=== PATIENT | female | born 1970 | race Hispanic/Latino ===

== ENCOUNTER 2019-05-18 16:25 | Inpatient (IN) | payer MEDICAID, SELFPAY ==
[2019-05-18] MEDS ORDERED: Heparin 1,000 UNITS/ML VIAL ONE (16:41)
[2019-05-18] MEDS ORDERED: Ondansetron PF 4 MG/2 ML Vial ONE ×2 (18:14→19:52)
[2019-05-18 18:21] LABS: Mean Corpuscular HGB CONC 33.6 g/dL (32.0-36.0); Mean Corpuscular Hemoglobin 27.4 pg (27.0-31.0); Mean Corpuscular Volume 81.6 fL (78.0-98.0); Mean Platelet Volume 9.3 fL (7.4-10.4); Platelet Count 278 thou/uL (130-400); RBC Distribution Width 13.1 % (11.5-14.5); White Blood Cell (WBC) Count 13.4 thou/uL (4.8-10.8)
[2019-05-18 18:30] LABS: ALT (SGPT) 47 U/L (8-55); AST (SGOT) 32 U/L (5-34); Alkaline Phosphatase 168 U/L (40-110); Anion Gap 13 mmol/L (10-20); BUN (Urea Nitrogen) 4 mg/dL (7.0-18.7); Bilirubin, Total 0.7 mg/dL (0.2-1.2); Calc. Creatinine Clearance 0 mL/min (70-130); Calcium 9.2 mg/dL (7.8-10.44); Carbon Dioxide 24 mmol/L (22-29); Chloride 102 mmol/L (98-107); Estimated GFR-MDRD 86; Globulin 3.9 g/dL (2.4-3.5); Glucose 126 mg/dL (70-105); Lipase 16 U/L (8-78); Potassium 3.4 mmol/L (3.5-5.1); Protein, Total 7.9 g/dL (6.0-8.3); Sodium 136 mmol/L (136-145)
[2019-05-18 18:37] LABS: Bilirubin Negative (Negative); Blood, Urine 2+ (Negative); Clarity Clear (Clear); Glucose, Urine (Dipstick) Normal (Negative); Leukocyte Negative Leu/uL (Negative); Nitrite Negative (Negative); Protein, Urine (Dipstick) Negative (Neg-Trace); Squamous Epithelial 0-3 HPF (0-3); Urobilinogen Normal mg/dL (Less than 2); WBC/HPF 0-3 HPF (0-3)
[2019-05-18 18:38] LABS: Bacteria/HPF 1+ HPF (None Seen); Pregnancy Test - Urine (BHCG) Negative (Negative); Pregu Control Background? CLEAR/WHITE (CLR/WHITE); Pregu Control Bar Appear? YES (CONTROL BAR); Specific Gravity 1.006 (1.002-1.036)
[2019-05-18 18:43] LABS: Band 5 % (5-11); Lymphocytes 10 % (21-51); MDiff Complete? YES; Monocytes 2 % (0-10); Neutrophil 83 % (42-75); Platelet Morphology Comment Appears Adequate; RBC Morphology Normal
--- NOTE | 2019-05-18 19:38 | CT ---
EXAM: CT ABDOMEN AND PELVIS HISTORY: 8 days of abdominal pain. COMPARISON: None. Procedure: Multiple contiguous axial images were obtained and a CT of the abdomen and pelvis with IV contrast. C oronal reformats were performed. FINDINGS: Lower Chest: within normal limits. Vessels: Normal caliber aorta. Heart: Upper normal cardiac silhouette. No significant pericardial fluid. Abdomen: Portal vein:Patent Gallbladder: No calcified gallstones. Normal caliber wall. Liver: within normal limits. Pancreas: within normal limits. Spleen: within normal limits. Adrenals: within normal limits. Kidneys: Symmetric enhancement. No obstructive uropathy. Peritoneum: There is stranding of the inferior midline abdominal mesentery. There is stranding of the mesentery adjacent to the sigmoid colon. Bowel: Limited evaluation due to lack of oral contrast. No evidence of small bowel obstruction. Unrem arkable ileocecal junction. Normal caliber appendix. There does appear to be mucosal thickening involving the sigmoid colon with pericolonic fat stranding. Mild mucosal thickening of the rectum is also noted. Mesentery and Retroperitoneum: There are enlarged periaortic and aortocaval lymph nodes. Respectively , these lymph nodes measure 0.8 x 1.3 cm and 1.4 x 0.8 cm. Abdominal Wall: Small ventral abdominal wall hernia containing mesenteric fat. Pelvis: Reproductive Organs: There is fluid in the endometrial canal and vaginal vault. There is heterogeneou s appearance of the right ovary with possible multiple small follicles. The left ovary is markedly enlarged with adjacent fat stranding. Multiple complex cystic lesions are suspected. Overall the left ovary measures 8.1 x 4.6 cm. Pelvis: There is a small amount of fluid in the pelvis. Bladder: within normal limits. Bones: within normal limits. IMPRESSION: 1. Complex multiloculated lesion of the left adnexa with adjacent fat stranding. The possibility of a ovarian cystic lesion is raised. Stranding may be secondary to a recently ruptured cyst. Other etiologies including infectious or neoplastic process cannot be excluded. 2. Abnormal appearance of the right ovary with multiple hypodensities which may represent small folli cles. 3. Mucosal thickening with pericolonic fat stranding involving the sigmoid colon and rectum. Findings may be due to colitis. Reactive changes from inflammation of the left adnexa cannot be excluded. 4. Retroperitoneal lymphadenopathy. Results of study discussed with Dr. Marley 05/18/2019 at 7:36 PM Code CR Transcribed Date/Time: 05/18/2019 8:07 PM
[2019-05-18] MEDS ORDERED: Morphine 4 MG/ML VIAL ONE (19:52)
[2019-05-18] MEDS ORDERED: Ketorolac Tromethamine 30 MG/ML VIAL ONE (20:10)
[2019-05-18] MEDS ORDERED: cefOXitin 2 GM VIAL ONE (20:32)
[2019-05-18] MEDS ORDERED: Doxycycline 100 MG CAP PO SCH (20:45)
[2019-05-18] MEDS ORDERED: Ketorolac Tromethamine 30 MG/ML VIAL IVP PRN (23:37)
[2019-05-18] MEDS ORDERED: traMADol HCl 50 MG TAB PO PRN (23:38)
[2019-05-19] MEDS ORDERED: cefOXitin 2 GM in Sodium Chloride 0.9% 100 ML IVPB SCH (02:00)
[2019-05-19] MEDS ORDERED: Acetaminophen 500 MG TAB ONE (06:39)
--- NOTE | 2019-05-19 11:40 | HP ---
CHIEF COMPLAINT: Abdominal pain. HISTORY OF PRESENT ILLNESS: The patient is a 48-year-old multiparous female, who has presented to the emergency room with 8 days of abdominal pain and on evaluation downstairs, was noted to have an adnexal mass with fat stranding of about 8 cm dilation and lymphadenopathy. GRADUATE STUDENT INSTRUCTOR was consulted and the patient was admitted for suspected tubo-ovarian abscess. The patient reports that she has been having this foul discharge now for about a week. She denies any history of sexually transmitted infections or recurrent pelvic infections. She is and is sexually active. The patient does report that she has on occasion been to the doctor there in [place] for this foul smelling vaginal discharge and has been given antibiotics and sent home. The patient most recently was sent home in the last couple of days with medication for gastritis and urinary tract infection. The patient reports she has had fever at home off and on for multiple days. Denies nausea, or vomiting. Reports headaches for the last 3 days. Denies chest pain or shortness of breath. Denies diarrhea, or constipation. Denies any new rashes, hip problems, knee problems, or muscle weakness. Reports this vaginal discharge and bleeding when she wipes, which she does not believe is menstrual bleeding or vaginal bleeding. The patient also reports some bleeding with urination. PAST MEDICAL HISTORY: Negative. PAST SURGICAL HISTORY: For prior . ALLERGIES: NO KNOWN DRUG ALLERGIES. MEDICATIONS: Her recently prescribed medications include; 1. Sucralfate 1 g. 2. Omeprazole 40 mg daily. SOCIAL HISTORY: Denies drug, alcohol, or tobacco use. PHYSICAL EXAMINATION: VITAL SIGNS: In the emergency room, the patient had a temperature of 102.6. Most recent vital signs on the floor, blood pressure is 119/70, temperature 98.3, pulse is 79, respiratory rate 18, saturating 99% on room air. GENERAL: She appears to be in no acute distress. She is alert and oriented, cooperative, and pleasant to interact with. HEENT: Head is normocephalic, atraumatic. LUNGS: Clear to auscultation bilaterally. HEART: Has regular rate and rhythm. ABDOMEN: Little protuberant. She does have pretty significant tenderness to palpation in her lower abdomen and left and right sides with the right seeming to be more tender than the left. EXTREMITIES: Nontender, nonedematous. : Deferred at this time. DIAGNOSTIC STUDIES: CT report shows this left adnexal mass of about 8 x 4 cm, multiloculated with fat stranding and mucosal thickening involving the sigmoid colon and rectum that may be reactive changes from the left adnexa. LABORATORY DATA: Her white count was 13.4, hemoglobin 11, hematocrit 32.6, neutrophil percentage 83. ASSESSMENT AND PLAN: The patient is a 48-year-old female with what appears to be a tubo-ovarian abscess, now treated with cefoxitin 2 g q.6 hours and doxycycline 100 mg p.o. b.i.d. We will continue treatment for the next several days and re-evaluate. Clinically pain should improve in the next couple of days as a sign of treatment responsiveness and depending on how quickly her fever resolves, we will continue IV antibiotics until she is 40 hours afebrile, and then continue transition to oral antibiotics for outpatient management. We may need to re-image over the next several days to evaluate for improvement and persistently enlarging adnexa. The patient has Toradol, tramadol, and Tylenol for pain control at this time, Ambien for sleep, and Protonix for GI prophylaxis. Job ID: [id number]
[2019-05-19] MEDS: cefOXitin Sodium/Dextrose,Iso 2 GM in Premix Bag 1 BAG IVPB SCH ×3 (13:14→19:54)
[2019-05-19] MEDS: Doxycycline 100 MG CAP PO SCH ×2 (13:15→23:00)
[2019-05-19] MEDS ORDERED: Sodium Chloride 0.9% 10 ML ONE (15:54)
[2019-05-19] MEDS: Acetaminophen 500 MG TAB PO PRN (17:12)
[2019-05-19] MEDS ORDERED: Ondansetron ODT 4 MG TAB SL PRN (19:18)
[2019-05-19] MEDS ORDERED: Ondansetron 2MG/ML MDV 4 MG in Sodium Chloride 0.9% 50 ML IVPB PRN (19:18)
--- NOTE | 2019-05-19 19:21 | PDOC.BPN ---
- Brief Progress Note S: Patient reports pain is improved from admission. Complaining of some nausea but otherwise no issues. O: Vital Signs - Most Recent Temp Pulse Resp BP Pulse Ox 100.2 F H 88 20 117/66 96 05/19/19 17:03 05/19/19 17:03 05/19/19 17:03 05/19/19 17:03 05/19/19 17:03 Gen - AAO, NAD Exam otherwise deferred A/P: Admitted for TOA, on antibiotics. Clinically improved. Temperatures trending down. Continue antibiotics. Will order Zofran for nausea.
[2019-05-19] MEDS ORDERED: FLU VACC QS2019-20(6MOS UP)/PF 60 MCG/0.5 ML SYRINGE IM ONE (21:00)
[2019-05-19 22:46] LABS: Chlamydia by PCR Not Detected (NotDetected); GC by PCR Not Detected (NotDetected)
[2019-05-20] MEDS: cefOXitin Sodium/Dextrose,Iso 2 GM in Premix Bag 1 BAG IVPB SCH ×4 (02:51→20:25)
[2019-05-20 04:34] LABS: #Eosinphils 0.4 thou/uL (0.0-0.7); #Lymphocytes 0.9 thou/uL (1.20-3.40); #Monocytes 0.6 thou/uL (0.11-0.59); #Neutrophils 8.9 thou/uL (1.40-6.50); %Basophils 0.3 % (0.0-1.0); %Eosinophils 3.3 % (0.0-10.0); %Lymphocytes 8.6 % (21.0-51.0); %Monocytes 5.1 % (0.0-10.0); %Neutrophils 82.8 % (42.0-75.0); Hemoglobin 9.1 g/dL (12.0-16.0); Mean Corpuscular HGB CONC 32.9 g/dL (32.0-36.0); Mean Corpuscular Hemoglobin 27.4 pg (27.0-31.0); Mean Corpuscular Volume 83.4 fL (78.0-98.0); Mean Platelet Volume 8.5 fL (7.4-10.4); Platelet Count 253 thou/uL (130-400); Red Blood Cell (RBC) Count 3.31 mill/uL (4.20-5.40); White Blood Cell (WBC) Count 10.7 thou/uL (4.8-10.8)
--- NOTE | 2019-05-20 07:33 | PDOC.BPN ---
- Brief Progress Note S: Patient with mild lower abdominal pain but doing better. Nausea improved. O: Tm 102 at 1700 Gen - AAO, NAD Abd - soft, mildly TTP, no guarding or rebound Labs: Laboratory Results - last 24 hr 05/18/19 05/20/19 21:38 04:22 WBC 10.7 RBC 3.31 L Hgb 9.1 L Hct 27.6 L MCV 83.4 MCH 27.4 MCHC 32.9 RDW 13.0 Plt Count 253 MPV 8.5 Neutrophils % 82.8 H Lymphocytes % 8.6 L Monocytes % 5.1 Eosinophils % 3.3 Basophils % 0.3 Neutrophils # 8.9 H Lymphocytes # 0.9 L Monocytes # 0.6 H Eosinophils # 0.4 Basophils # 0.0 Chlamydia DNA (PCR) Not Detected Chlamydia/GC Spec Info N gonorrhoeae DNA (PCR) Not Detected A/P: Clinically improving. One fever yesterday evening but none overnight; WBC count normal this am. Continue antibiotic therapy until afebrile at least 24 hours.
[2019-05-20] MEDS: Doxycycline 100 MG CAP PO SCH ×2 (09:04→22:41)
[2019-05-20] MEDS: Acetaminophen 500 MG TAB PO PRN (17:47)
[2019-05-21] MEDS: cefOXitin Sodium/Dextrose,Iso 2 GM in Premix Bag 1 BAG IVPB SCH ×2 (02:06→08:04)
[2019-05-21] MEDS: Doxycycline 100 MG CAP PO SCH ×2 (08:40→21:36)
--- NOTE | 2019-05-21 10:29 | CT ---
CT OF THE ABDOMEN AND PELVIS WITH IV CONTRAST INDICATION: Follow-up pelvic infection COMPARISON: CT the abdomen and pelvis dated May 18, 2019 FINDINGS: ABDOMEN: Lung bases: Bibasilar atelectasis. Liver: No focal lesion. Gallbladder: Normal appearing. Pancreas: Normal. Adrenal glands: Normal. Spleen: Normal. Kidneys and ureters: Normal. No hydronephrosis. Vasculature: Normal. Lymph nodes:There are mildly prominent shotty appearing lymph nodes seen within the left periaortic r egion which are relatively stable to the prior exam. Free fluid in abdomen:No free fluid is evident. PELVIS: Small and large bowel: Normal Appendix:There is mild fluid distention of the distal tip of the appendix with the tip of the appendi x measuring up to 11 mm. The tip is adjacent to a region of inflammatory change in the left adnexa. The mid to proximal aspect the appendix is normal in caliber and appearance. Bladder: Normal. Rectal and perirectal soft tissues:Normal. Reproductive structures: There is an 8.4 x 4.5 x 6.8 cm loculated peripherally enhancing fluid collec tion within the region of the left adnexa. This is roughly stable in size to the prior exam. There is surrounding inflammatory stranding within the parametrium as well as within the adjacent sigmoid c olon. Right ovary is normal-appearing. Free fluid in pelvis: Mild free fluid Lymphadenopathy pelvis: No lymphadenopathy is evident. Osseous structures: No acute osseous abnormality. No destructive osteolytic or osteoblastic lesion i s identified. Soft tissues:Normal. IMPRESSION: 1. Stable loculated peripherally enhancing fluid collections in the region of the left adnexa remain suspicious for an ovarian and paraovarian abscess. 2. Stable suspected reactive lymphadenopathy of the left periaortic region of the retroperitoneum. 3. Slight fluid distention seen involving the appendiceal tip is likely reactive in nature as it is n ear the inflammatory change of the left adnexa. Tip appendicitis is not suspected.
--- NOTE | 2019-05-21 11:04 | PDOC.EVN ---
Event Note - Event Note Event Note: Received report form Dr. Butcher this AM. 48 yo LAF admitted 3 days ago with 8 cm TOA. Remains on Mefoxin/Doxycycline, has been AF x 36 hrs but continues to c/o pain. BC shows gram + cocci, ID pending. PEx by me just now, Abdomen is soft, no guarding or rebound. CT repeated this AM shows TOA unchanged. Plan: Will consult Dr. Anglin for consideration of cont. ABX vs. plan for surgery with BRAYAN/BSO.
[2019-05-21] MEDS ORDERED: Iopamidol 370 76% 100 ML VIAL ONE (11:38)
[2019-05-21] MEDS: MEROPENEM 1 GM/50 ML 1 GM in Premix Bag 1 BAG IVPB SCH ×2 (13:46→21:36)
[2019-05-21] MEDS: traMADol HCl 50 MG TAB PO PRN (13:50)
[2019-05-21 13:53] LABS: HIV (1/2) Antibody/Antigen Non-Reactive (NonReactive); HIV 1/2 INDEX 0.13 S/CO (<1.00); Syphilis Antibody Nonreactive (Nonreactive); Syphilis Antibody Index 0.02 S/CO (<1.00 Non-Reactive)
--- NOTE | 2019-05-21 15:16 | CON ---
DATE OF CONSULTATION: REASON FOR CONSULTATION: Pelvic inflammatory disease. HISTORY OF PRESENT ILLNESS: A 48-year-old with no significant past medical history. She is s/p 4 C-sections in the past and goes regularly to her physician in [place] and has checkups and reportedly negative HIV and other serologies. Has had negative Pap smears in the past as well or normal Pap smears. About one week before admission, she developed a fairly rapid onset of abdominal pain, centered around the lower abdominal area, associated with fever. She has some back pain as well. No headaches. No respiratory symptoms. No diarrhea. Had started her periods. No dysuria. No joint symptoms. No skin disorder. No neurological symptoms. MEDICAL HISTORY: C-sections. No other medical history. SOCIAL HISTORY: She lives in [place], with , has 3 children, and is from [place] originally. Never smoker and does not drink or use any other substance. ALLERGIES: NONE. FAMILY HISTORY: Noncontributory. MEDICATIONS: Had been on sucralfate and omeprazole; and here, she is on p.r.n. meds, cefoxitin, Vibramycin, and pantoprazole. PHYSICAL EXAMINATION: VITAL SIGNS: T-max 101.0 and she is now 98.9, BP 140/76, pulse 81, respirations 18 to 20, and O2 saturation 100. SKIN: Normal. Peripheral IV access. She is voiding in the toilet. No lymphadenopathy. HEENT: Ocular movements conjugate. Oral cavity normal except for numerous missing teeth and a lot of dental decay and some gum disease. NECK: Supple. No jugular vein distention or carotid bruits. LUNGS: Symmetric. Clear breath sounds. HEART: S1 and S2. Regular rate. No S3 or S4. No murmurs. ABDOMEN: Moderately distended with diffuse tenderness, which is more intense in the lower abdomen. Tenderness is mild to moderate. She does have tenderness on percussion with a little bit of peritoneal signs, particularly in the lower quadrants. No bladder distention. EXTREMITIES: No joint inflammatory activity. No edema. Pulses 1+ in dorsalis pedis. NEUROLOGIC: Nonfocal including cognitive function. LABORATORY DATA: White cell count 13.4 down to 10.7, hemoglobin 11, and 82% neutrophils. Creatinine 0.73. Liver profile normal; alkaline phosphatase 168, albumin 4.0. Chlamydia and GC PCR nonreactive. Urinalysis with 0-3 wbc's, negative protein. Microbiology with one set of blood cultures with a likely contaminant. Vaginitis screen was positive for Gardnerella, negative Trichomonas and Priya. The patient had 2 CTs of abdomen and pelvis and they demonstrate a cystic mass in the left adnexa, fat stranding in the adjacent colon. DISCUSSION: Differential diagnosis includes pelvic inflammatory disease. The usual pathogens including anaerobes, chlamydia, GC, and gram-negative rods. Malignancy is less likely. Colitis or primary appendicitis is less likely. We will check HIV again, syphilis serology, and switch her to meropenem and continue Vibramycin. Monitor clinical progress. Job ID: [id number] MTDD
[2019-05-22] MEDS: MEROPENEM 1 GM/50 ML 1 GM in Premix Bag 1 BAG IVPB SCH ×3 (05:41→21:27)
--- NOTE | 2019-05-22 06:01 | PDOC.EVN ---
Event Note - Event Note Event Note: HD#4 Merpenim #1. Feeling better this AM. Tolerating regular diet. VSS AF Abdomen is soft, pt. reports less tenderness. ID consult by Dr. Anglin greatly appreciated. Plan: Cont. ABX per Dr. Anglin.
[2019-05-22] MEDS: traMADol HCl 50 MG TAB PO PRN (06:22)
[2019-05-22] MEDS: Doxycycline 100 MG CAP PO SCH ×2 (08:29→21:27)
[2019-05-22] MEDS: Acetaminophen 500 MG TAB PO PRN (22:44)
[2019-05-23 04:36] LABS: #Eosinphils 0.4 thou/uL (0.0-0.7); #Lymphocytes 1.5 thou/uL (1.20-3.40); #Monocytes 0.7 thou/uL (0.11-0.59); #Neutrophils 9.9 thou/uL (1.40-6.50); %Basophils 0.2 % (0.0-1.0); %Lymphocytes 12.2 % (21.0-51.0); %Monocytes 5.6 % (0.0-10.0); %Neutrophils 78.9 % (42.0-75.0); Hemoglobin 9.4 g/dL (12.0-16.0); Mean Corpuscular HGB CONC 33.5 g/dL (32.0-36.0); Mean Corpuscular Hemoglobin 27.2 pg (27.0-31.0); Mean Corpuscular Volume 81.2 fL (78.0-98.0); Mean Platelet Volume 8.2 fL (7.4-10.4); Platelet Count 357 thou/uL (130-400); RBC Distribution Width 13.3 % (11.5-14.5); Red Blood Cell (RBC) Count 3.46 mill/uL (4.20-5.40); White Blood Cell (WBC) Count 12.5 thou/uL (4.8-10.8)
[2019-05-23] MEDS: MEROPENEM 1 GM/50 ML 1 GM in Premix Bag 1 BAG IVPB SCH ×3 (05:32→22:11)
--- NOTE | 2019-05-23 07:37 | PDOC.BPN ---
- Brief Progress Note S: Pt reports doing well. Denies any fever or chills overnight. Denies any acute events overnight. Denies any pain. Denies any n/v/d/c. O: General: Alert and oriented HEENT: normocephalic, atraumatic. Cardio: RRR, no murmurs or gallops Resp: CTA-B, no wheezes or crackles Abdomen: Soft, NTTP, No hernias. BS+ Ext: No edema. Moves all ext bilaterally VSS. Wbc 12.3 A/P Tuboovarian Abscess -Meropenem day #2. Will continue IV abx for a few more days and reevaluate with CT scan at that time. Will continue to trend WBC. Stable. VSS. No fevers noted. No pain at this time. Continue current pain regimen. -Dr. Anglin consulted- follow recs.
[2019-05-23] MEDS: Doxycycline 100 MG CAP PO SCH ×2 (09:23→22:11)
[2019-05-23] MEDS: traMADol HCl 50 MG TAB PO PRN (10:35)
--- NOTE | 2019-05-23 14:09 | PRG ---
DATE OF SERVICE: 05/23/2019 SUBJECTIVE: Pain has improved. No diarrhea. No vomiting. Voiding without difficulty. OBJECTIVE: VITAL SIGNS: T-max 99.8. Other vital signs are normal. GENERAL: Awake, alert, and oriented. Much less tenderness in the abdominal area and pelvic area. LUNGS: Clear. HEART: S1 and S2, regular rate. ABDOMEN: Soft. LABORATORY DATA: White cell count is up to 12.5, hemoglobin 9.4, platelets 357, and 78% neutrophils. Chemistry was not particularly remarkable. ASSESSMENT AND DISCUSSION: Pelvic inflammatory disease with improvement after transitioned to meropenem. Continue doxycycline. PICC line placement and plan discharge on ertapenem, maybe through [facility], we will place consult for Case Management to treat for few weeks until there is further improvement in inflammatory markers and in the imaging findings. Job ID: [id number]
[2019-05-24] MEDS: MEROPENEM 1 GM/50 ML 1 GM in Premix Bag 1 BAG IVPB SCH ×3 (06:00→22:08)
--- NOTE | 2019-05-24 06:14 | PDOC.EVN ---
Event Note - Event Note Event Note: HD#6 Meripenim #3 Continues to improve. VSS AF Abdomen is soft and nondistended. Plan: Cont. ABX with consideration of repeat CT. Dr. Butcher coming on today, will discuss with him.
[2019-05-24] MEDS: Doxycycline 100 MG CAP PO SCH ×2 (10:28→22:08)
[2019-05-24] MEDS: traMADol HCl 50 MG TAB PO PRN (16:32)
[2019-05-24] MEDS ORDERED: Simethicone Chewable 80 MG TAB PO PRN (16:54)
[2019-05-24] MEDS ORDERED: Sodium Chloride 0.9% 10 ML ONE (22:00)
[2019-05-25] MEDS ORDERED: Sodium Chloride 0.9% 10 ML ONE ×2 (06:18→22:04)
[2019-05-25] MEDS: MEROPENEM 1 GM/50 ML 1 GM in Premix Bag 1 BAG IVPB SCH ×3 (06:20→22:06)
--- NOTE | 2019-05-25 07:21 | SPC ---
Sonographic guided left upper extremity PICC HISTORY: Pelvic abscess. FINDINGS: After explaining the procedure and answering all questions, the left upper extremity was pr epped and draped in usual sterile fashion. Sterile technique, buffered local anesthesia, sonographic guidance, and a 22-gauge needle were used to carefully access the left basilic vein. Kai dard technique was used to place the tip of a 5 [place] single lumen PICC with the tip at the level of the cavoatrial junction. Catheter was flushed and secured externally. Sonographic survey shows echogenic material within a noncompressible cephalic vein. Patient tolerated the procedure well and was returned in unchanged condition. Fluoroscopy time 0 seconds. IMPRESSION: Left upper extremity PICC is ready for use. Occlusive thrombus within the left cephalic vein.
[2019-05-25 08:13] LABS: #Eosinphils 0.4 thou/uL (0.0-0.7); #Lymphocytes 1.3 thou/uL (1.20-3.40); #Monocytes 0.5 thou/uL (0.11-0.59); %Basophils 0.1 % (0.0-1.0); %Eosinophils 3.5 % (0.0-10.0); %Lymphocytes 11.4 % (21.0-51.0); %Monocytes 4.2 % (0.0-10.0); %Neutrophils 80.9 % (42.0-75.0); Hemoglobin 10.1 g/dL (12.0-16.0); Mean Corpuscular HGB CONC 32.6 g/dL (32.0-36.0); Mean Corpuscular Hemoglobin 26.9 pg (27.0-31.0); Mean Corpuscular Volume 82.5 fL (78.0-98.0); Mean Platelet Volume 8.1 fL (7.4-10.4); Platelet Count 435 thou/uL (130-400); RBC Distribution Width 13.2 % (11.5-14.5); Red Blood Cell (RBC) Count 3.77 mill/uL (4.20-5.40); White Blood Cell (WBC) Count 11.1 thou/uL (4.8-10.8)
--- NOTE | 2019-05-25 08:14 | PRG ---
DATE OF SERVICE: 05/25/2019 SUBJECTIVE: The patient is a 48-year-old female, now hospital day 7, here for a presumed TOA, on meropenem and doxycycline. The patient reports this morning that her pain is significantly improved from yesterday. She has been ambulating well. She remains afebrile with a T-max of 100.5 yesterday afternoon at around 5 o'clock. CBC has been ordered this morning to evaluate her white count as that has been bouncing up and down through her stay. OBJECTIVE: VITAL SIGNS: Most recent vital signs show blood pressure 118/75, temperature 99.4, pulse is 77, respiratory rate of 12, with O2 saturation of 99% on room air. GENERAL: She appears to be in no acute distress. She is alert, oriented, cooperative, and pleasant to interact with. ABDOMEN: Soft. She does have some mild tenderness in her lower pelvis to palpation, but much improved from my previous exams. LABORATORY DATA: CBC is pending for the day. CT scan is also pending. We have a CT of the abdomen and pelvis scheduled for evaluation of this pelvic what appears to be loculated TOA to see it has reduced in size or changed significantly in any way. ASSESSMENT AND PLAN: The patient is a 48-year-old female who presented to the emergency room with abdominal pain and diagnosed with presumed TOA. Original CT scan shows multiloculated mass about 8 cm in its largest dimension. The patient is clinically showing some improvement. Though given the size of this and continue to bounce elevated temperatures and a bouncing white count, there is some concern the patient may need surgical intervention for drainage of this loculated infection. White count today is pending. CT scan results are pending and will direct further treatment plan. Infectious Disease has been involved and they had recommended placing the patient on meropenem and doxycycline, which we continued to do. She does have a PICC line in place currently in preparation for outpatient IV antibiotics. Dr. Mata will be the oncoming physician. Job ID: [id number]
[2019-05-25] MEDS: Lactinex Tablet PO SCH (10:14)
[2019-05-25] MEDS: Doxycycline 100 MG CAP PO SCH ×2 (10:14→22:05)
--- NOTE | 2019-05-25 10:19 | CT ---
CT ABDOMEN AND PELVIS WITH ORAL AND IV CONTRAST: HISTORY: Tubo-ovarian abscess. Follow-up exam to evaluate response to antibiotics. COMPARISON: 05/21/19 FINDINGS: The loculated peripherally enhancing fluid collection in the region of the left adnexa, suspicious fo r a tubo-ovarian abscess, is slightly larger, currently measuring 9.2 x 5.5 x 7 cm (previously 8.4 x 4.5 x 6.8 cm) with surrounding inflammatory changes. Reactive lymphadenopathy in the left periaortic region is again seen. The remainder of the exam is essentially stable. IMPRESSION: Mild increase in size of the left TOA since 05/21/19. POS: [facility]
--- NOTE | 2019-05-25 11:13 | PDOC.EVN ---
Event Note - Event Note Event Note: OBALLANN Training Program Assistant Status report: CT scan review: Case reviewed with DR Butcher this AM at 0800. IV ABX: Meropenum and po DOXY. PICC line in in prep for outpatient Rocephin and flagyl. CT this am with slight increase in TOA size (left) with largest dimension 9cm. As per Dr Butcher, plan is to possibly eval in surgery this week allowing foe acute inflammation to resolve. Temps seen this am and last true fever yesterday at 1700, 100.5
--- NOTE | 2019-05-25 13:11 | PDOC.EVN ---
Event Note - Event Note Event Note: @1300: Discussed with radiology for possible perc drainage or aspiration....we will see how she does today and if respikes temp we will consider percutaneous aspiration rather than a continued drain. Clinically stable and improving. Follow temps.
--- NOTE | 2019-05-25 13:37 | PRG ---
DATE OF SERVICE: 05/25/2019 SUBJECTIVE: Ms. Phelan persists with some pain and has had some low-grade temperature elevation that the glass novelty maker is going to take her for drainage of this inflammatory mass in the adnexal area today. Repeat CT scan is reviewed below. OBJECTIVE: VITAL SIGNS: T-max 100.5, blood pressure 120/70, pulse 80, respirations 20, O2 saturation 99. GENERAL: She does not appear in acute distress. LUNGS: Clear. HEART: S1 and S2, regular rate. ABDOMEN: Soft with mild tenderness in pelvic area. NEURO: Nonfocal. LABORATORY DATA: White cell count is up to 11, hemoglobin 10, and platelets 435. Creatinine 0.73, and the repeat CT showed slight enlargement of the mass measuring now 9 x 5.5 x 7 cm, surrounding inflammatory changes, reactive lymphadenopathy. ASSESSMENT AND DISCUSSION: Pelvic inflammatory disease with stabilization, but now slight worsening, and we will go for surgical drainage cultures. We will facilitate discharge planning and accelerate improvement as well. Job ID: [id number]
--- NOTE | 2019-05-25 15:45 | PRG ---
DATE OF SERVICE: 05/25/2019 This is hospital day #7. The patient was admitted on 05/18/2019. REASON FOR ADMISSION: Suspected left tubal ovarian abscess. CURRENT MEDICATIONS: Meropenem and oral doxycycline. I evaluated the patient at bedside at around 3:15 to 3:28 p.m. The patient states that she feels better. SUBJECTIVE: Feeling better and is tolerating p.o. She has normal voiding and bowel movements. States abdominal pain is less, but still has some discomfort. OBJECTIVE: VITAL SIGNS: Last temperature was yesterday at around 5:00 p.m. and it was 100.4. We are close 24 hours of no fever. LABORATORY DATA: CBC is pending for a.m. run tomorrow morning. CT scan was reviewed with the patient and the size of the mass was discussed with her. ASSESSMENT: This is a week of therapy for suspected TOA with the CT scan this morning showing a stable mass/slightly larger, but it is unsure if that is a true clinical change or not. PLAN: 1. Continue antibiotics. 2. PICC line is in place. 3. I have discussed with her that as she is clinically improving, we will follow her clinically. If she re-spikes, we may consider needle aspiration of the mass and this was discussed with her. I did discuss surgical intervention, but as she is clinically getting better, it may be best to await spontaneous resolution of some of the surrounding inflammation. Therefore, surgical management is done. 4. She will likely need outpatient followup not only she continues her IV antibiotics, but also to see if the mass has some resolution or continues to organize. 5. No acute needs at this time. 6. The patient is not acutely ill and her abdomen is nonsurgical at this time. Job ID: [id number]
[2019-05-26] MEDS: MEROPENEM 1 GM/50 ML 1 GM in Premix Bag 1 BAG IVPB SCH ×3 (05:26→21:21)
[2019-05-26] MEDS ORDERED: Sodium Chloride 0.9% 10 ML ONE ×2 (05:29→14:23)
[2019-05-26 05:43] LABS: #Eosinphils 0.4 thou/uL (0.0-0.7); #Lymphocytes 1.5 thou/uL (1.20-3.40); #Monocytes 0.4 thou/uL (0.11-0.59); #Neutrophils 7.8 thou/uL (1.40-6.50); %Basophils 0.3 % (0.0-1.0); %Lymphocytes 14.9 % (21.0-51.0); %Monocytes 4.2 % (0.0-10.0); %Neutrophils 76.6 % (42.0-75.0); Hemoglobin 9.5 g/dL (12.0-16.0); Mean Corpuscular HGB CONC 33.1 g/dL (32.0-36.0); Mean Corpuscular Hemoglobin 26.9 pg (27.0-31.0); Mean Corpuscular Volume 81.3 fL (78.0-98.0); Mean Platelet Volume 7.9 fL (7.4-10.4); Platelet Count 416 thou/uL (130-400); RBC Distribution Width 13.2 % (11.5-14.5); Red Blood Cell (RBC) Count 3.55 mill/uL (4.20-5.40); White Blood Cell (WBC) Count 10.2 thou/uL (4.8-10.8)
--- NOTE | 2019-05-26 06:28 | PDOC.EVN ---
Event Note - Event Note Event Note: Lab check: WBC this am now normal at 10
--- NOTE | 2019-05-26 07:19 | PRG ---
DATE OF SERVICE: 05/26/2019 PRINCIPAL DIAGNOSIS: Suspected left adnexal mass/abscess versus other. SUBJECTIVE: In brief, the patient states that she continues to feel well and is eating and tolerating a regular diet. She is having regular bowel movements. OBJECTIVE: This morning, her white blood cell count is actually normal at 10, when it was 11 yesterday. This is the first time that her white blood cell count is in the normal range. However, the patient's temperature yesterday afternoon was still low-grade, febrile at 100.5 to 100.7. PHYSICAL EXAMINATION: GENERAL: She is in no acute distress. ABDOMEN: Nonsurgical and while there is pain on deep palpation. There is no rebound or guarding. Abdomen is soft without distention. Antibiotics continued to be meropenem and oral doxycycline. ASSESSMENT: This is a patient who is now continued IV antibiotics for greater than one week with a persistent left adnexal mass. On review of her history, she states that she has had a tubal ligation with her last , which was five years ago. Having a tubal ligation makes tubo-ovarian abscess from the uterine etiology less probable. It is unclear if this is a true tubo-ovarian abscess versus a sealed off perforated diverticulum that is decreasing in inflammatory response. For now, we will continue to manage medically. PLAN: 1. Continue IV antibiotics as ordered. 2. Continue temperature checks as scheduled. 3. I will discuss with the team. It is possible that she may need general surgery consult to see if they would consider this as a sealed off/perforated diverticula versus TOA. 4. The patient clinically looks well, and she is improving. We will follow. ADDENDUM: Reviewed case (informally) with one of our General Surgeons (Rudi). Plan of care agreed upon that for now, continued ABX ok. Follow temps today. Job ID: [id number] [facility]
[2019-05-26] MEDS: Doxycycline 100 MG CAP PO SCH ×2 (09:02→21:20)
[2019-05-26] MEDS: Lactinex Tablet PO SCH (09:02)
--- NOTE | 2019-05-26 17:16 | PRG ---
DATE OF SERVICE: 05/26/2019 SUBJECTIVE: Feeling better. No abdominal pain whatsoever. Eating well. Urine function normal. No diarrhea. No respiratory symptoms. OBJECTIVE: VITAL SIGNS: Vital signs are essentially normal. She had a temperature elevation of 100.6 yesterday at 5 p.m., but afebrile since. LUNGS: Clear. HEART: S1 and S2. Regular rate. ABDOMEN: Soft, not tender to palpation. EXTREMITIES: No joint pains. NEURO: Nonfocal. LABORATORY DATA: White cell count 10.2, hemoglobin 9.5, and platelets 416. Creatinine 0.73. ASSESSMENT AND DISCUSSION: Pelvic inflammatory disease with likely abscess or tubo-ovarian abscess. It seems like things have turned around again and white cell count coming down, platelets coming down, as well as temperature curve. Awaiting on decision of Dr. Mata regarding intervention. Job ID: [id number]
[2019-05-26] MEDS: Zolpidem Tartrate 5 MG TAB PO PRN (22:01)
[2019-05-27] MEDS: MEROPENEM 1 GM/50 ML 1 GM in Premix Bag 1 BAG IVPB SCH ×3 (05:41→21:32)
--- NOTE | 2019-05-27 06:42 | PRG ---
DATE OF SERVICE: 05/27/2019 SUBJECTIVE: Today is hospital day 9 with IV antibiotics for suspected tubo-ovarian abscess versus a perforated diverticulum resulting in abscess, and she has been on meropenem and doxycycline and this morning, she reports that she has been feeling a lot better. She is able to stretch and move and with little discomfort. She says she has some pain present with deep palpation of the area on her left lower pelvis, but is much improved since admission. The patient is currently n.p.o. and has no complaints. OBJECTIVE: VITAL SIGNS: Current temperature is 98.2. Her last febrile incident was on 05/25/2019 at around 8:00 p.m., which is about 36 hours ago. GENERAL: She appears to be in no acute distress. She is alert and oriented, cooperative and pleasant to interact with. HEENT: Head is normocephalic and atraumatic. ABDOMEN: Soft. She has some minimal tenderness in the left lower quadrant, but there is no guarding or rebound or peritoneal signs. ASSESSMENT AND PLAN: The patient is 48-year-old female, now on IV antibiotics for approximately 9 days for a pelvic abscess. She clinically continues to improve. Her febrile cycle has been stretching out. She has now been more than 36 hours without a temperature and is diminishing in intensity. Given the significant improvement in the clinical picture and the next question is whether surgery is necessary for resolution of this infection. The patient does have a history of a tubal ligation. There was some question whether this is a tubo-ovarian abscess versus an abscess from a perforated diverticula. In speaking with General Surgery, one of the prior [employer] hospitalist reports that medical management is the preferred method of care in that setting. Dr. Lugo is the oncoming physician today, who will be making further management decisions. At this time, we will discontinue IV antibiotics. If surgery is not going to be part of her care, then we will be making arrangements for outpatient IV antibiotics. The patient does have a PICC line in place and Dr. Anglin, Infectious Disease physician has recommended Rocephin and Flagyl as an alternative to her current regimen. Job ID: [id number]
[2019-05-27] MEDS: Lactinex Tablet PO SCH (09:26)
[2019-05-27] MEDS: Doxycycline 100 MG CAP PO SCH ×2 (09:26→21:33)
[2019-05-27] MEDS: Zolpidem Tartrate 5 MG TAB PO PRN (22:34)
[2019-05-28] MEDS: MEROPENEM 1 GM/50 ML 1 GM in Premix Bag 1 BAG IVPB SCH ×2 (05:53→13:36)
--- NOTE | 2019-05-28 07:16 | PRG ---
DATE OF SERVICE: 05/28/2019 TIME OF SERVICE: 0650 hours. SUBJECTIVE: Ms. Phelan is on hospital day #10 with right possible tubo-ovarian versus diverticular abscess. She is noted to be status post BTL. Dr. Mata had discussion with General Surgery, felt that status post tubal ligation true tubo-ovarian abscess from ascending infection is very low and this is more likely a complex associated with perhaps diverticular abscess. Considering diverticular abscess and its response, conservative management would be most beneficial. The patient continues to feel somewhat better every day. Current complication is inability to set the patient up for home IV antibiotic therapy, likely of somewhere around 21 to 28-day total duration of antibiotics secondary to the patient's unfunded status. OBJECTIVE: VITAL SIGNS: T-max 99.6. Temperature now is 98.3, pulse 72, respirations 16, blood pressure 99/61. HEENT: Within normal limits. LUNGS: Clear to auscultation bilaterally. HEART: Regular rhythm. ABDOMEN: Soft and nontender. She has essentially no discomfort on abdominal exam. LABORATORY DATA: White count yesterday was down to 10.2. IMPRESSION: Complex right adnexal/possible diverticular abscess improving clinically, on meropenem and doxycycline. PLAN: Continue IV antibiotics via PICC line. We will re-engage Case Management to look for solutions involving outpatient IV antibiotic therapy with PICC line involving Rocephin and Flagyl as per Dr. Anglin' recommendations. Job ID: [id number]
[2019-05-28] MEDS: Lactinex Tablet PO SCH (08:13)
[2019-05-28] MEDS: Doxycycline 100 MG CAP PO SCH (08:13)
[2019-05-28 11:51] VITALS: BMI 33.1
[2019-05-28 12:00] VITALS: BP 124/76; TEMP 98.4
--- NOTE | 2019-05-31 11:58 | DIS ---
DATE OF ADMISSION: 05/18/2019 DATE OF DISCHARGE: 05/28/2019 ADMITTING DIAGNOSES: 1. Abdominal pain with fever. 2. Pelvic mass with suspected tubo-ovarian abscess versus diverticular abscess. PROCEDURE: PICC line placement. CONSULTATIONS: Infectious Disease and Case Management. HOSPITAL COURSE: The patient was admitted and placed on cefoxitin 2 g q.6 hours and doxycycline [address] scan demonstrated a mass measuring 8.1 x 4.6 cm, believed to be involving the left ovary. During the course of her stay, the patient continued to spike fevers, though her fever trend was improving and her pain began improving after several days. Repeat CT scan demonstrated a mass that was stable, possibly slightly larger, though clinically she continued to show signs of improvement. Given the patient's history of a tubal ligation and concern that this may represent a diverticular abscess versus a TOA, decision was made to continue conservative management and treat with IV antibiotics. Arrangements have been made here on hospital day #9 for outpatient management. Infectious Diseases recommended Rocephin 2 g daily and 500 mg metronidazole t.i.d. Case Management has assisted with arranging this outpatient care. Today is again hospital day #9, she is clinically much improved, pain has nearly resolved. She has been afebrile now for several days. White count seems to have normalized. The patient is being discharged home with outpatient IV antibiotics and PICC line, which was placed in the last few days. She has been counseled to seek medical attention if she returns to having fever or increasing worsening pain. She also been asked to follow up with [facility] [place] in a week or two for followup and at the conclusion of her IV antibiotic course, the patient will need followup to make sure her symptoms and that her treatment plan has resolved this infection. DISCHARGE MEDICATIONS: The patient is being discharged home with Rocephin 2 g IV daily until the 14 of June and metronidazole 500 mg p.o. t.i.d. until the 14 of June. Job ID: [id number]
== END 2019-05-28 16:00 | disposition home or self-care (01) | DRG 392 ==
LOC: ERS 16:25 → 3SE 23:12 → OBSVTOIN 23:27 → 3SE 23:27
PROVIDERS: ADMIT Obstetrics & Gynecology; ATTEND Obstetrics & Gynecology
PROC: 02HV33Z Insertion of Infusion Device into Superior Vena Cava, Percutaneous Approach (ICD-10-PCS; principal; 2019-05-24)
PROC: B548ZZA Ultrasonography of Superior Vena Cava, Guidance (ICD-10-PCS; 2019-05-24)
PROC: B5181ZA Fluoroscopy of Superior Vena Cava using Low Osmolar Contrast, Guidance (ICD-10-PCS; 2019-05-24)
DX: K57.80 Diverticulitis of intestine, part unspecified, with perforation and abscess without bleeding (principal); I82.612 Acute embolism and thrombosis of superficial veins of left upper extremity
CPT/HCPCS: 36415; 36569; 74177; 80053; 81003; 81015; 81025; 83605; 83690; 85025; 86780; 87040; 87070; 87077; 87389; 87480; 87491; 87510; 87591; 87660; 96361; 96365; 96375; C1751; J0694; J1885; J2185; J2270; J2405; Q0162; Q9967